=== PATIENT | male | born 1965 | race Caucasian/White ===

== ENCOUNTER 2017-09-20 18:28 | Emergency (ER) | payer MEDICAID | END 2017-09-20 20:00 | disposition home or self-care (01) | LOC: D.ER 18:28 | DX: J45.901 Unspecified asthma with (acute) exacerbation (principal); J30.9 Allergic rhinitis, unspecified ==

== ENCOUNTER 2017-10-10 14:45 | Emergency (ER) | payer MEDICAID | END 2017-10-10 16:56 | disposition home or self-care (01) | LOC: D.ER 14:45 | DX: E86.0 Dehydration (principal); F17.200 Nicotine dependence, unspecified, uncomplicated ==